=== PATIENT | female | born 1985 | race Caucasian/White ===

== ENCOUNTER 2024-11-24 12:04 | Inpatient (IN) | payer BC ==
[2024-11-24 12:37] VITALS: BMI 27.1
[2024-11-24] MEDS ORDERED: Acetaminophen 500 MG TAB PO PRN (13:03)
[2024-11-24] MEDS ORDERED: Misoprostol 200 MCG TAB PR PRN (13:03)
[2024-11-24] MEDS ORDERED: HYDROcodone/Acetaminophen 5/325 mg Tablet PO PRN ×2 (13:03)
[2024-11-24] MEDS ORDERED: Lidocaine 1% (PF) 30 ML VIAL SC PRN (13:03)
[2024-11-24] MEDS ORDERED: Diphenoxylate HCl/Atropine Tablet PO PRN ×2 (13:03)
[2024-11-24] MEDS ORDERED: hydrALAZINE 20 MG/ML VIAL SLOW IVP PRN (13:03)
[2024-11-24] MEDS ORDERED: Promethazine HCl 25 MG/ML VIAL IM PRN ×2 (13:03→19:52)
[2024-11-24] MEDS ORDERED: Ibuprofen 800 MG TAB PO PRN (13:03)
[2024-11-24] MEDS ORDERED: Ondansetron PF 4 MG/2 ML Vial IVP PRN (13:03)
[2024-11-24] MEDS ORDERED: fentaNYL 50 mcg/mL 1 mL Vial SLOW IVP PRN (13:03)
[2024-11-24] MEDS ORDERED: Carboprost 250 MCG/ML AMP IM PRN (13:03)
[2024-11-24] MEDS ORDERED: Methylergonovine 0.2 MG/ML VIAL IM PRN (13:03)
[2024-11-24] MEDS ORDERED: Tranexamic Acid 1,000 MG/10 ML VIAL IVP PRN (13:03)
[2024-11-24] MEDS ORDERED: Oxytocin 30 units/NS 500 ML 500 ML IV SCH (13:15)
[2024-11-24] MEDS ORDERED: Lactated Ringer's 1,000 ML IV SCH (13:15)
[2024-11-24 14:12] LABS: Hematocrit 32.6 % (34.9-44.5); Hemoglobin 11.2 g/dL (12.0-15.5); Mean Corpuscular HGB CONC 34.4 g/dL (32.0-36.0); Mean Corpuscular Hemoglobin 31.3 pg (27.0-33.0); Mean Corpuscular Volume 91.1 fL (81.6-98.3); Platelet Count 149 10x3/uL (150-450); RBC Distribution Width 11.9 % (11.5-14.5); Red Blood Cell (RBC) Count 3.58 10x6/uL (3.90-5.03); White Blood Cell (WBC) Count 5.15 10x3/uL (3.5-10.5)
[2024-11-24] MEDS: Misoprostol 100 MCG TAB PO SCH (14:32)
[2024-11-24 14:44] LABS: Syphilis Antibody Nonreactive (Nonreactive); Syphilis Antibody Index 0.07 S/CO (<1.00 Non-Reactive)
[2024-11-24 14:46] LABS: Hep B Surf Ag - L&D Non-Reactive S/CO (NonReactive)
[2024-11-24] MEDS: Penicillin G Potassium 5 MILL.UNITS in Sodium Chloride 0.9% 100 ML IVPB SCH (17:56)
[2024-11-24] MEDS ORDERED: diphenhydrAMINE 50 MG/ML VIAL IVP PRN (19:52)
[2024-11-24] MEDS ORDERED: ePHEDrine Sulfate 50 MG/10 ML VIAL SLOW IVP PRN (19:52)
[2024-11-24] MEDS ORDERED: Acetaminophen 325 MG TAB PO PRN (19:52)
[2024-11-24] MEDS ORDERED: Lactated Ringer's 500 ML IV PRN (19:52)
[2024-11-24] MEDS ORDERED: Naloxone HCl 0.4 mg/ml Vial IVP PRN ×2 (19:52)
[2024-11-24] MEDS ORDERED: Moisturizing Cream (Eucerin) 113 GM JAR TOP PRN (19:52)
[2024-11-24] MEDS ORDERED: Communication Order-Pharmacy FS SCH (20:00)
[2024-11-24] MEDS ORDERED: fentaNYL 2 mcg/Ropivacaine 0.2% Epidural 100 ML CADD EPIDURAL SCH (20:00)
[2024-11-24] MEDS: Penicillin G 2.5 MILL.units 2.5 MILL.UNITS in Premix 1 BAG IVPB SCH (21:55)
[2024-11-24] MEDS: Ondansetron PF 4 MG/2 ML Vial IVP PRN (21:55)
[2024-11-24] MEDS: Oxytocin 30 units/NS 500 ML 500 ML IV SCH (22:19)
[2024-11-25] MEDS: Ondansetron PF 4 MG/2 ML Vial IVP PRN (02:38)
[2024-11-25] MEDS ORDERED: Lanolin Ointment 7 GM TUBE TOP PRN (06:51)
[2024-11-25] MEDS ORDERED: Bisacodyl 10 MG SUPP PR PRN (06:51)
[2024-11-25] MEDS ORDERED: diphenhydrAMINE 25 MG CAP PO PRN (06:51)
[2024-11-25] MEDS ORDERED: hydrALAZINE 20 MG/ML VIAL SLOW IVP PRN (06:51)
[2024-11-25] MEDS: Ibuprofen 800 MG TAB PO SCH (07:27)
[2024-11-25] MEDS: Prenatal Vitamin 1 TAB PO SCH (07:28)
[2024-11-25] MEDS: Benzocaine-Menthol 82.5 ML CAN TOP PRN (07:28)
[2024-11-25] MEDS: Docusate 100 MG CAP PO SCH (07:28)
[2024-11-25] MEDS: Acetaminophen 500 MG TAB PO SCH (12:22)
[2024-11-25] MEDS: traMADol HCl 50 MG TAB PO PRN (13:02)
[2024-11-25] MEDS ORDERED: Bupivacaine/Epinephrine 0.25% 30 ML VIAL ONE (14:00)
[2024-11-25] MEDS: Fentanyl 100 MCG/2 ML VIAL ONE ×2 (21:17→21:18)
[2024-11-25] MEDS: Dexmedetomidine 200 MCG/2 ML VIAL ONE (21:18)
[2024-11-25] MEDS: fentaNYL/Ropivacaine Epidural 100 ML ONE (21:18)
[2024-11-26] MEDS: Milk Of Magnesia 30 ML UDCUP PO PRN (14:11)
[2024-11-27] MEDS: Boostrix 0.5 ML (Tdap) VIAL (>/=7 yrs of age) IM ONE (07:44)
[2024-11-27 09:02] VITALS: BP 121/78; TEMP 98.2
== END 2024-11-27 16:25 | disposition home or self-care (01) | DRG 768 ==
LOC: CSHLD/OP 12:04 → CSHLD 12:45 → CSHPP 11-25 15:50
PROVIDERS: ADMIT Obstetrics & Gynecology; ATTEND Obstetrics & Gynecology
PROC: 10D07Z5 Extraction of Products of Conception, High Forceps, Via Natural or Artificial Opening (ICD-10-PCS; principal; 2024-11-25)
PROC: 0DQR0ZZ Repair Anal Sphincter, Open Approach (ICD-10-PCS; 2024-11-25)
PROC: 3E033XZ Introduction of Vasopressor into Peripheral Vein, Percutaneous Approach (ICD-10-PCS; 2024-11-25)
DX: O24.420 Gestational diabetes mellitus in childbirth, diet controlled (principal); Z37.0 Single live birth; O70.20 Third degree perineal laceration during delivery, unspecified; O99.824 Streptococcus B carrier state complicating childbirth; Z90.49 Acquired absence of other specified parts of digestive tract; O64.0XX0 Obstructed labor due to incomplete rotation of fetal head, not applicable or unspecified; Z3A.39 39 weeks gestation of pregnancy
CPT/HCPCS: 36415; 51702; 85027; 86780; 86850; 86900; 86901; 87340; 99285; J2405; J2540; J2590; J3010